=== PATIENT | female | born 1975 | race Caucasian/White ===

== ENCOUNTER 2022-01-30 08:04 | Day surgery (SDC) | payer OTHER ==
[~2022-01-30] VITALS: Ht 162.6 cm; Wt 137.0 kg
[~2022-01-30 08:04] MED LIST: ATOR10TA69 PO; GLIP-102 PO; LEVO75 PO; LOSA-381 PO; METF-1211 PO; SODIUM CHLORIDE 0.9% 1,000 ML IV ONE
[2022-01-30 09:11] LABS: COVID AG,FIA SOURCE NASAL SWAB
[2022-01-30] MEDS ORDERED: PROPOFOL 1% 20 ML VIAL IVP ONE (12:00)
[2022-01-30] MEDS ORDERED: OXYGEN THERAPY IH SCH (20:00)
== END 2022-01-30 11:40 | disposition home or self-care (01) ==
LOC: SURGERY 08:04
PROVIDERS: ATTEND Specialist
DX: R19.5 Other fecal abnormalities (principal); K64.0 First degree hemorrhoids; I10 Essential (primary) hypertension; E11.9 Type 2 diabetes mellitus without complications; E78.00 Pure hypercholesterolemia, unspecified; Z20.822 Contact with and (suspected) exposure to COVID-19; Z79.84 Long term (current) use of oral hypoglycemic drugs; Z79.890 Hormone replacement therapy; Z79.899 Other long term (current) drug therapy; Z88.0 Allergy status to penicillin; Z98.51 Tubal ligation status; Z98.890 Other specified postprocedural states; Z83.79 Family history of other diseases of the digestive system
CPT/HCPCS: 45378; 87426; J2704; C9803